=== PATIENT | female | born 1990 | race Native Hawaiian/Other Pacific Islander ===

== ENCOUNTER 2019-03-28 08:42 | Inpatient (IN) | payer SELFPAY ==
--- NOTE | 2019-03-28 09:41 | HPE_ITS ---
History of Present Illness 29 yo at 39 6/7 weeks in active labor. GBS neg. 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 [place] Results Labs Result diagrams: 03/28/19 09:39
[2019-03-28 10:31] LABS: HCT 37.5 % (36.0-46.0); HGB 12.6 g/dL (12.0-15.5); Mean Corp. HGB Concentration 33.6 g/dL (32.0-36.0); Mean Corpuscular Hemoglobin 28.8 pg (27.0-33.0); Mean Corpuscular Volume 85.6 fL (80-95); Mean Platelet Volume 10.6 fL (8.0-11.0); Platelet Count 279 x1000/uL (130-400); RBC 4.38 m/cumm (4.00-5.20); RBC Distribution Width 13.7 % (11.7-14.6); White Blood Cell Count 14.09 k/cumm (4.4-10.8)
[2019-03-28] MEDS: Oxytocin 10 UNITS/ML VIAL IM (15:12)
[2019-03-28] MEDS: Lidocaine 1% Multi-Dose 20 ML VIAL ×2 (15:16)
[2019-03-28] MEDS: Acetaminophen 325 MG TAB 650 MG PO (17:39)
[2019-03-28] MEDS: Hamamelis Leaf/Glycerin 100 EACH BOX PR (17:40)
[2019-03-28] MEDS: Ibuprofen 600 MG TAB PO (17:40)
[2019-03-29] MEDS: Ibuprofen 600 MG TAB PO ×3 (01:55→20:15)
[2019-03-29] MEDS: Acetaminophen 325 MG TAB 650 MG PO ×3 (01:55→20:15)
[2019-03-29 07:38] LABS: HCT 34.2 % (36.0-46.0); HGB 11.4 g/dL (12.0-15.5); Mean Corp. HGB Concentration 33.3 g/dL (32.0-36.0); Mean Corpuscular Hemoglobin 28.7 pg (27.0-33.0); Mean Corpuscular Volume 86.1 fL (80-95); Mean Platelet Volume 10.6 fL (8.0-11.0); Platelet Count 291 x1000/uL (130-400); RBC 3.97 m/cumm (4.00-5.20)
[2019-03-30] MEDS: Acetaminophen 325 MG TAB 650 MG PO ×3 (00:01→14:20)
[2019-03-30] MEDS: Ibuprofen 600 MG TAB PO ×3 (02:20→14:20)
== END 2019-03-30 15:20 | disposition home or self-care (01) | DRG 768 ==
PROVIDERS: Admitting Provider Family Medicine; PCP Family Medicine; Visit Provider Family Medicine
DX: O42.02 Full-term premature rupture of membranes, onset of labor within 24 hours of rupture (principal); Z37.0 Single live birth; O70.20 Third degree perineal laceration during delivery, unspecified; O62.1 Secondary uterine inertia; Z3A.39 39 weeks gestation of pregnancy; O66.0 Obstructed labor due to shoulder dystocia; O63.1 Prolonged second stage (of labor)
CPT/HCPCS: 36415; 85027; 86850; 86900; 86901; 99222; J2590; J3490